=== PATIENT | female | born 1995 | race Hispanic/Latino ===

== ENCOUNTER 2019-12-19 14:04 | Emergency (ER) | payer MEDICAID, OTHER ==
[2019-12-19 14:32] LABS: BILIRUBIN,URINE Negative (NEGATIVE); GLUCOSE, URINE (UA) Negative (NEGATIVE); KETONES,URINE Negative (NEGATIVE); LEUKOCYTE ESTERASE ,URINE Large (NEGATIVE); NITRATE,URINE Negative (NEGATIVE); OCCULT BLOOD,URINE Small (NEGATIVE); PH,URINE 6.5 (5.0-8.0); PROTEIN,URINE Negative (NEGATIVE); UROBILINOGEN,URINE 0.2 mg/dL (0.2-1.0)
[2019-12-19 14:33] LABS: APPEARANCE,URINE HAZY (CLEAR); COLOR,URINE STRAW (YELLOW)
[2019-12-19 14:40] LABS: RBC,URINE None Seen /HPF (0-1); WBC,URINE 26-50 /HPF (0-1)
[2019-12-19 14:41] LABS: BACTERIA,URINE Few /HPF (None Seen); SQUAMOUS EPITHELIAL CELL,UR None Seen /HPF (0-2)
[2019-12-19] MEDS ORDERED: CEFTRIAXONE SODIUM 1 GM ONE (14:57)
[2019-12-19] MEDS ORDERED: LIDOCAINE HCL-MPF 1% 2ML VIAL ONE (14:57)
== END 2019-12-19 15:31 | disposition home or self-care (01) ==
LOC: EDH 14:04
DX: O23.11 Infections of bladder in pregnancy, first trimester (principal); Z79.899 Other long term (current) drug therapy; Z90.49 Acquired absence of other specified parts of digestive tract; Z3A.11 11 weeks gestation of pregnancy
CPT/HCPCS: 81001; 96372; 99283; J0696; J3490

== ENCOUNTER 2020-07-02 17:22 | Inpatient (IN) | payer MEDICAID, OTHER ==
[~2020-07-02] VITALS: Ht 154.9 cm; Wt 78.5 kg
[2020-07-02] MEDS ORDERED: LACTATED RINGERS 1000ML 1,000 ML IV PRN (17:56)
[2020-07-02] MEDS ORDERED: PROMETHAZINE HCL 25 MG/ML 1ML AMPULE IM PRN (18:00)
[2020-07-02] MEDS ORDERED: NALOXONE HCL 0.4 MG/1 ML ML IV PRN (18:00)
[2020-07-02] MEDS ORDERED: LACTATED RINGERS 500 ML 500 ML IV PRN (18:00)
[2020-07-02] MEDS ORDERED: MEPERIDINE-PF 50 MG/ML SYG IVP PRN (18:00)
[2020-07-02] MEDS ORDERED: AMPICILLIN 2GM+NS 100ML 100 ML IV SCH (18:00)
[2020-07-02] MEDS ORDERED: EPHEDRINE SULFATE 50 MG/ML AMPULE IVP PRN (18:00)
[2020-07-02 19:22] LABS: HEMATOCRIT 36.6 % (36-48); MEAN CORPUSCULAR HGB CONC 34.2 g/dL (32.0-36.0); MEAN CORPUSCULAR VOLUME 93.6 fL (79-99); RED BLOOD CELL COUNT(AUTO) 3.91 MIL/uL (4.00-5.50); RED CELL DISTRIBUTION WIDTH 13.2 % (11.0-15.5); WHITE BLOOD COUNT (AUTO) 7.7 K/uL (4.8-10.8)
[2020-07-02 19:24] LABS: APPEARANCE,URINE Cloudy (CLEAR); BILIRUBIN,URINE Negative (NEGATIVE); COLOR,URINE Yellow (YELLOW); GLUCOSE, URINE (UA) Negative (NEGATIVE); KETONES,URINE 40 mg/dL (NEGATIVE); LEUKOCYTE ESTERASE ,URINE Small (NEGATIVE); NITRATE,URINE Negative (NEGATIVE); OCCULT BLOOD,URINE Negative (NEGATIVE); PROTEIN,URINE Negative (NEGATIVE)
[2020-07-02 20:07] LABS: BACTERIA,URINE Few /HPF (None Seen); RBC,URINE 0-1 /HPF (0-1); SQUAMOUS EPITHELIAL CELL,UR Moderate /HPF (0-2)
[2020-07-02] MEDS: AMPICILLIN 1GM+NS 50ML 50 ML IV SCH (23:43)
[2020-07-03] MEDS ORDERED: ACETAMINOPHEN EXTRA STRENGTH 500 MG TABLET ONE (01:24)
[2020-07-03] MEDS ORDERED: ACETAMINOPHEN EXTRA STRENGTH 500 MG TABLET PO SCH (01:30)
[2020-07-03] MEDS: AMPICILLIN 1GM+NS 50ML 50 ML IV SCH (03:14)
[2020-07-03] MEDS ORDERED: LIDOCAINE HCL 1% 20 ML VIAL ONE (03:54)
[2020-07-03] MEDS ORDERED: OXYTOCIN-LR 20 UNITS/1000 ML 1,000 ML IV ONE ×2 (03:55→05:29)
[2020-07-03] MEDS ORDERED: OXYTOCIN 10 USP UNITS/ML 20 UNIT in LACTATED RINGERS 1000ML 1,000 ML IV SCH (04:00)
[2020-07-03] MEDS ORDERED: WITCH HAZEL 1 PAD TP PRN (04:45)
[2020-07-03] MEDS ORDERED: BENZOCAINE/LANOLIN/ALOE VERA 60 ML AEROSOL TP PRN (04:45)
[2020-07-03] MEDS ORDERED: LANOLIN 30GM OINTMENT TP PRN (04:45)
[2020-07-03] MEDS ORDERED: ACETAMINOPHEN-CODEINE 300/30MG TAB PO PRN (04:45)
[2020-07-03] MEDS: IBUPROFEN 600 MG TABLET PO PRN ×2 (06:24→20:31)
[2020-07-03 08:00] VITALS: BP 114/69
[2020-07-03] MEDS ORDERED: PREN-154 PO (09:26)
[2020-07-03] MEDS: DOCUSATE SODIUM 100 MG CAP PO SCH ×2 (09:33→20:31)
[2020-07-03] MEDS: ACETAMINOPHEN 325 MG TAB PO PRN ×2 (09:34→16:36)
[2020-07-03 12:30] VITALS: BP 102/65
[2020-07-03 16:45] VITALS: BP 101/65
[2020-07-03] MEDS ORDERED: DIPH,PERTUSS(ACELL),TET VAC/PF 0.5 ML VIAL IM ONE (17:20)
--- NOTE | 2020-07-03 19:30 | NUR ---
PT WISHES TO SHOWER. STATES WILL WEAR HER OWN CLOTHES. CHANGE BED LINENS WHILE PT SHOWERS.
[2020-07-03 20:20] VITALS: BP 106/66
--- NOTE | 2020-07-03 20:23 | NUR ---
PT OUT OF SHOWER. ASKED IF NORMAL FOR HER TO PASS CLOT. ASKED PT IF SHE IS BLEEDING HEAVILY. STATES DOES NOT KNOW. PT ALSO REQUESTING TYLENOL FOR CRAMPING. 04/09
--- NOTE | 2020-07-03 20:35 | NUR ---
WENT INTO PT ROOM. COLACE AND MORTIN 600 GIVEN. PT DID NOT FLUSH TOILET. CLOT AND URINE IN NUNS HAT. CLOT SIZE OF GULF BALL. PT DENIES BLEEDING HEAVILY OR PASSING CLOTS DURING THE DAY.PT STATES SHE BEEN IN BED MOST OF THE DAY, UP TO VOID AND SHOWER ONLY. FUNDAL MASSAGE, SCANT BLEEDING. FUNDUS FIRM. PT TO NOTIFY IF CRAMPING WORSENS, BLEEDING INCREASES OR PASSING CLOTS. PT VERBALIZED UNDERSTANDING.
--- NOTE | 2020-07-03 21:40 | NUR ---
DISCHARGE INSTRUCTIONS GIVEN TO PT VERBALLY AND WRITTEN. PT VERBALIZED UNDERSTANDING AND ASKED QUESTIONS WHICH WERE ANSWERED.
[2020-07-04 00:01] VITALS: BP 117/79
[2020-07-04 04:02] VITALS: BP 99/61
--- NOTE | 2020-07-04 04:04 | NUR ---
PT STATES NO FURTHER BLEEDING
[2020-07-04 06:59] LABS: HEMATOCRIT 33.2 % (36-48); MEAN CORPUSCULAR HEMOGLOBIN 32.6 pg (27.0-33.0); MEAN CORPUSCULAR HGB CONC 33.4 g/dL (32.0-36.0); MEAN CORPUSCULAR VOLUME 97.4 fL (79-99); RED BLOOD CELL COUNT(AUTO) 3.41 MIL/uL (4.00-5.50); RED CELL DISTRIBUTION WIDTH 13.4 % (11.0-15.5); WHITE BLOOD COUNT (AUTO) 7.9 K/uL (4.8-10.8)
--- NOTE | 2020-07-04 07:19 | NUR ---
CBC DRAWN AT 0640. PT DENIES PAIN/ CRAMPING. STATES SHE VOIDED AND PASSED A CLOT. PT DENIES HEAVY BLEEDING. FUNDAL MASSAGE DONE, SCANT BLOOD. CLOT COLLECTED AND WEIGHED 188 ML. REPORT GIVEN TO ONCOMING NURSE, BEAU CALDERÓN.
[2020-07-04 08:00] VITALS: BP 116/69
[2020-07-04] MEDS: DOCUSATE SODIUM 100 MG CAP PO SCH (08:09)
[2020-07-04 08:13] LABS: HEPATITIS Bs ANTIGEN SCREEN P Negative (Negative)
--- NOTE | 2020-07-04 09:25 | NUR ---
Dr. Mejia called and asked how her pts are doing. Informed her that pt passed a big clot this morning, no orders received. She gave an order that her pts can be discharged today and she will call pharmacy for their prescription. Addendum: 07/04/20 at 0909 by BEAU CHASE RN Amended: Links added.
--- NOTE | 2020-07-04 09:30 | NUR ---
pt is discharged. verbal and written discharge instructions given, pls refer to exit care. emphasized importance of frequent ambulation to prevent blood clots. informed of the follow up appointment, informed that Dr. Mejia will call pharmacy for prescription. informed to call the doctor for future concerns. pt voiced understanding to all things discussed. pt will wait for her baby's discharge. Addendum: 07/04/20 at 1003 by BEAU CHASE RN Amended: Links added.
--- NOTE | 2020-07-04 11:15 | NUR ---
pt is dismissed with baby in stable condition, brought to private car via wheelchair. Addendum: 07/04/20 at 1125 by BEAU CHASE RN Amended: Links added.
== END 2020-07-04 11:20 | disposition home or self-care (01) | DRG 805 ==
LOC: EDH 17:22 → LDH 17:46 → WSH 07-03 08:00
PROVIDERS: ADMIT Obstetrics & Gynecology; ATTEND Obstetrics & Gynecology
PROC: 10E0XZZ Delivery of Products of Conception, External Approach (ICD-10-PCS; principal; 2020-07-03)
PROC: 3E0234Z Introduction of Serum, Toxoid and Vaccine into Muscle, Percutaneous Approach (ICD-10-PCS; 2020-07-03)
PROC: 3E0R3BZ Introduction of Anesthetic Agent into Spinal Canal, Percutaneous Approach (ICD-10-PCS; 2020-07-03)
PROC: 00HU33Z Insertion of Infusion Device into Spinal Canal, Percutaneous Approach (ICD-10-PCS; 2020-07-03)
DX: O98.52 Other viral diseases complicating childbirth (principal); U07.1 COVID-19; Z37.0 Single live birth; O69.81X0 Labor and delivery complicated by cord around neck, without compression, not applicable or unspecified; Z3A.39 39 weeks gestation of pregnancy; Z23 Encounter for immunization
CPT/HCPCS: 36415; 81001; 85027; 86592; 86701; 86850; 86900; 86901; 87340; 87390; 87426; 90715; A4314; G0378; J0290; J2590; U0003